=== PATIENT | female | born 1985 | race Two or more races ===

== ENCOUNTER 2024-10-08 15:50 | Emergency (ER) | payer BC ==
[~2024-10-08] VITALS: Ht 157.5 cm; Wt 61.2 kg
[2024-10-08] MEDS ORDERED: ANAFRANIL50 MG PO (16:27)
[2024-10-08] MEDS ORDERED: OXTELLAR XR300 MG (16:28)
[2024-10-08] MEDS ORDERED: CIPROFLOXACIN HCL 500 MG TABLET PO ONE (16:45)
[2024-10-08] MEDS ORDERED: TAMSULOSIN HCL 0.4 MG CAP PO ONE ×2 (16:45→17:01)
[2024-10-08 18:19] LABS: HEMATOCRIT 40.8 % (36.0-45.00); MEAN CELL VOLUME 87.6 fL (80.00-100.00); MEAN CORPUSCULAR HGB CONC 34.2 g/dl (32.0-36.0); PLATELET COUNT 214 K/uL (150-450); RED BLOOD COUNT 4.66 M/uL (4.00-6.00); RED CELL DISTRIBUTION WIDTH 12.5 % (11.5-14.5)
[2024-10-08 18:28] LABS: URINE APPEARANCE Clear; URINE BILIRRUBIN Small (NEGATIVE); URINE BLOOD Negative; URINE COLOR Red; URINE GLUCOSE Negative (NEGATIVE); URINE LEUKOCYTE Moderate; URINE NITRATE Positive; URINE PROTEIN Trace (NEGATIVE)
[2024-10-08 18:32] LABS: URINE BACTERIA 266.8 uL (0.0-1933); URINE EPITHELIAL CELLS 19.7 uL (0.0-38.8); URINE RBC 70.4 uL (0.0-20.8); URINE WBC 2.3 uL (0.0-23.2)
[2024-10-08 18:58] LABS: URINE CAST 0.14 uL (0.0-1.40)
[2024-10-08 19:01] LABS: URINE KETONE TRACE (NEGATIVE)
[2024-10-08] MEDS ORDERED: PEPCID AC20 MG PO (19:06)
[2024-10-08] MEDS ORDERED: TAMS0.4C PO (19:06)
[2024-10-08] MEDS ORDERED: BACTRIM DS TAB1 EACH PO (19:06)
== END 2024-10-08 19:19 | disposition home or self-care (01) ==
LOC: ER 15:52
PROVIDERS: General Practice
DX: N39.0 Urinary tract infection, site not specified (principal); Z88.0 Allergy status to penicillin